=== PATIENT | male | born 1990 | race African-American/Black ===

== ENCOUNTER 2017-07-07 09:29 | Inpatient (IN) ==
[2017-07-07] MEDS ORDERED: ONDANSETRON 4 MG/2 ML VIAL ONE (10:08)
[2017-07-07] MEDS ORDERED: CLINDAMYCIN INJ 600 MG in PREMIX 1 EACH IV STA (10:08)
[2017-07-07] MEDS ORDERED: ONDANSETRON 4 MG/2 ML VIAL IV STA (10:08)
[2017-07-07] MEDS ORDERED: HYDROmorphone 2 MG/1 ML VIAL IV STA ×2 (10:08→13:11)
[2017-07-07] MEDS ORDERED: HYDROmorphone 2 MG/1 ML VIAL ONE ×3 (10:09→13:07)
[2017-07-07 10:48] LABS: Basophils % 0.4 % (0.0-0.8); Eosinophils # 0.1 10*3/uL (0.0-0.87); Eosinophils % 0.5 % (0.00-10.9); Hematocrit 42.1 VOL% (42.0-52.0); Hemoglobin 14.5 GM/DL (14.0-18.0); Immature Granulocytes % 0.4 %; Immature Granulocytes Absolute 0.04 #; Lymphocytes # 2.2 10*3/uL (1.4-4.0); Lymphocytes % 19.5 % (21.2-54.2); Mean Corpuscular HGB Conc 34.4 GM/DL (32-36); Mean Corpuscular Hemoglobin 32 PG (27-34); Mean Corpuscular Volume 91.9 FL (87-102); Mean Platelet Volume 11.5 FL (9.6-12.0); Monocytes # 0.8 10*3/uL (0.11-0.8); Monocytes % 7.6 % (1.7-12.7); Neutrophils % 71.6 % (38.7-73.9); Platelet Count 173 T/CUMM (130-400); Red Blood Count 4.58 MC/CUMM (3.8-5.5); Red Cell Distribution Width 12.4 % (9.3-17.3); White Blood Count 11.1 T/CUMM (4-12)
[2017-07-07] MEDS ORDERED: CLINDAMYCIN 600 MG/4 ML VIAL ONE (10:54)
[2017-07-07 11:21] LABS: Osmolality,Calculated 274.5 MOS/KG (273-304); Potassium 3.4 MMOL/L (3.5-5.1)
[2017-07-07] MEDS: cefOXitin 2,000 MG in SYRINGE 1 EACH IV ONE ×2 (12:15→15:58)
[2017-07-07] MEDS ORDERED: LACTATED RINGERS 1,000 ML IV SCH (13:00)
[2017-07-07] MEDS ORDERED: HYDROmorphone 2 MG/1 ML VIAL IV PRN (14:00)
[2017-07-07] MEDS ORDERED: PROPOFOL 200 MG/20 ML VIAL IV ONE (14:09)
[2017-07-07] MEDS ORDERED: SEVOFLURANE 1 UNIT/15 MINUTE INH ONE (14:09)
[2017-07-07] MEDS ORDERED: ONDANSETRON 4 MG/2 ML VIAL IV PRN (15:40)
[2017-07-07] MEDS ORDERED: MORPHINE 4 MG/1 ML VIAL IV PRN (15:40)
[2017-07-07] MEDS ORDERED: ACETAMINOPHEN 325 MG TABLET PO PRN (15:40)
[2017-07-07] MEDS: DEXTROSE 5% LACTATED RINGERS 1,000 ML IV SCH (17:36)
[2017-07-07] MEDS: cefOXitin 2,000 MG in SYRINGE 1 EACH IV SCH (17:39)
[2017-07-08] MEDS: DEXTROSE 5% LACTATED RINGERS 1,000 ML IV SCH ×2 (01:45→08:42)
[2017-07-08] MEDS: cefOXitin 2,000 MG in SYRINGE 1 EACH IV SCH ×5 (01:46→23:43)
[2017-07-08] MEDS: PANTOPRAZOLE 40 MG TABLET PO SCH (09:01)
[2017-07-08 10:36] LABS: Basophils # 0.1 10*3/uL (0.0-0.2); Basophils % 0.5 % (0.0-0.8); Eosinophils # 0.1 10*3/uL (0.0-0.87); Eosinophils % 0.8 % (0.00-10.9); Hematocrit 43.7 VOL% (42.0-52.0); Hemoglobin 14.5 GM/DL (14.0-18.0); Immature Granulocytes % 0.4 %; Immature Granulocytes Absolute 0.04 #; Lymphocytes # 2.3 10*3/uL (1.4-4.0); Lymphocytes % 22.8 % (21.2-54.2); Mean Corpuscular HGB Conc 33.2 GM/DL (32-36); Mean Corpuscular Hemoglobin 31 PG (27-34); Mean Corpuscular Volume 93.4 FL (87-102); Mean Platelet Volume 11.6 FL (9.6-12.0); Monocytes # 0.8 10*3/uL (0.11-0.8); Neutrophils # 6.7 10*3/uL (1.4-7.4); Neutrophils % 67.5 % (38.7-73.9); Platelet Count 184 T/CUMM (130-400); Red Blood Count 4.68 MC/CUMM (3.8-5.5); Red Cell Distribution Width 12.3 % (9.3-17.3)
[2017-07-08] MEDS: DOCUSATE SODIUM 100 MG CAPSULE PO SCH ×2 (11:10→20:39)
[2017-07-08] MEDS: NICOTINE 14 MG/24 HR PATCH TRANSDERM SCH (16:36)
[2017-07-09] MEDS: cefOXitin 2,000 MG in SYRINGE 1 EACH IV SCH ×3 (05:55→18:22)
[2017-07-09 06:31] LABS: Calcium 8.7 MG/DL (8.5-10.1); Osmolality,Calculated 277.3 MOS/KG (273-304); Potassium 3.3 MMOL/L (3.5-5.1)
[2017-07-09] MEDS: PANTOPRAZOLE 40 MG TABLET PO SCH (09:03)
[2017-07-09] MEDS: NICOTINE 14 MG/24 HR PATCH TRANSDERM SCH (09:03)
[2017-07-09] MEDS: DOCUSATE SODIUM 100 MG CAPSULE PO SCH ×2 (09:03→20:30)
[2017-07-09] MEDS ORDERED: POTASSIUM CHLORIDE 20 MEQ TABLET PO ONE ×2 (12:06→20:00)
[2017-07-10] MEDS: cefOXitin 2,000 MG in SYRINGE 1 EACH IV SCH ×3 (01:40→15:17)
[2017-07-10 07:43] LABS: Calcium 8.8 MG/DL (8.5-10.1)
[2017-07-10 07:44] LABS: Osmolality,Calculated 276.4 MOS/KG (273-304); Potassium 4.4 MMOL/L (3.5-5.1)
[2017-07-10] MEDS: DOCUSATE SODIUM 100 MG CAPSULE PO SCH ×2 (09:52→21:22)
[2017-07-10] MEDS: PANTOPRAZOLE 40 MG TABLET PO SCH (09:52)
[2017-07-10] MEDS: NICOTINE 14 MG/24 HR PATCH TRANSDERM SCH (09:54)
[2017-07-10] MEDS: SULFAMETHOX/TRIMETHOPRIM 800-160 MG TABLET PO SCH (21:22)
[2017-07-11] MEDS: NICOTINE 14 MG/24 HR PATCH TRANSDERM SCH (09:24)
[2017-07-11] MEDS: DOCUSATE SODIUM 100 MG CAPSULE PO SCH (09:24)
[2017-07-11] MEDS: PANTOPRAZOLE 40 MG TABLET PO SCH (09:24)
[2017-07-11] MEDS: SULFAMETHOX/TRIMETHOPRIM 800-160 MG TABLET PO SCH (09:24)
[2017-07-11 12:59] VITALS: BP 132/81
== END 2017-07-11 13:05 | disposition home or self-care (01) | DRG 346 ==
LOC: N.ED 09:29 → N.EDINP 09:29 → N.5E 12:22
PROVIDERS: ADMIT Surgery; ATTEND Surgery